=== PATIENT | female | born 1995 | race Caucasian/White ===

== ENCOUNTER 2018-07-23 22:52 | Inpatient (IN) | payer MEDICAID, OTHER ==
[2018-07-24] MEDS ORDERED: LIDOCAINE 1% (MPF) 30 ML INJ INJ
[2018-07-24] MEDS ORDERED: MINERAL OIL LIGHT 10 ML VIAL TOP
[2018-07-24] MEDS ORDERED: METHYLERGONOVINE 0.2 MG INJ IM
[2018-07-24] MEDS: LACTATED RINGER'S 1,000 ML IV ×5 (00:57→23:46)
[2018-07-24] MEDS: AMPICILLIN 2 GM/NS (PMX) 100 ML IV (00:57)
[2018-07-24 01:12] LABS: AMPHETAMINE/METHAMPHETAMINE Negative (NEGATIVE); BARBITURATES Negative (NEGATIVE); BENZODIAZEPINES Negative (NEGATIVE); CANNABINOIDS Negative (NEGATIVE); COCAINE Negative (NEGATIVE); OPIATES Negative (NEGATIVE)
[2018-07-24 01:21] LABS: ADD MAN DIFF? NO
[2018-07-24 01:21] LABS: RUPTURE FETAL MEMBRANES NEGATIVE (NEGATIVE)
[2018-07-24 01:25] LABS: BASOPHILS % 0.5 % (0.0-2.0); EOSINOPHILS # 0.1 10^3/ul (0.0-0.5); HEMATOCRIT 34.3 % (37.0-47.0); HEMOGLOBIN 11.2 g/dl (12.0-16.0); LYMPHOCYTES # 1.9 10^3/ul (0.8-2.9); MEAN CORPUSCULAR HEMOGLOBIN 27.9 pg (29.0-33.0); MEAN CORPUSCULAR HGB CONC 32.7 g/dl (32.0-37.0); MEAN CORPUSCULAR VOLUME 85.5 fl (82.0-101.0); MEAN PLATELET VOLUME 10.8 fl (7.4-10.4); MONOCYTE # 0.7 10^3/ul (0.3-0.9); MONOCYTES % 9.5 % (0.0-11.0); NEUTROPHIL # 4.5 10^3/ul (1.6-7.5); NEUTROPHILS % 61.5 % (39.0-77.0); PLATELET COUNT 215 10^3/UL (140-415); RED BLOOD COUNT 4.01 10^6/ul (4.20-5.40); RED CELL DISTRIBUTION WIDTH 13.6 % (11.5-14.5)
[2018-07-24 01:25] LABS: WHITE BLOOD COUNT 7.3 10^3/ul (4.8-10.8)
[2018-07-24 01:44] LABS: INR 0.85; PARTIAL THROMBOPLASTIN TIME 26.8 Sec (23.0-35.0); PROTIME 11.7 Sec (11.9-14.9); PT RATIO 0.9
[2018-07-24] MEDS: OXYTOCIN 30 UNITS/LR 500 ML IV ×2 (01:56→22:24)
[2018-07-24 03:04] LABS: HEPATITIS B SURFACE ANTIGEN NEGATIVE (NEGATIVE)
[2018-07-24] MEDS ORDERED: ONDANSETRON 4 MG INJ IV ×2 (04:00→23:30)
[2018-07-24] MEDS ORDERED: DIPHENHYDRAMINE 50 MG INJ IV ×2 (04:00→23:30)
[2018-07-24] MEDS ORDERED: NALOXONE (0.4 MG/ML) INJ IV (04:00)
[2018-07-24] MEDS: AMPICILLIN 1 GM/NS (PMX) 50 ML IV ×5 (04:01→19:23)
[2018-07-24] MEDS ORDERED: FENTAnyl 2MCG/ML-ROPIV 0.2% 100 ML (04:03)
[2018-07-24] MEDS: FENTAnyl 2MCG/ML-ROPIV 0.2% 100 ML BAG EPI ×2 (12:21→18:42)
[2018-07-24] MEDS: LACTATED RINGER'S 1,000 ML IV* (23:01)
[2018-07-24] MEDS ORDERED: NA PHOSPHATE/BIPHOS 133 ML ENEMA PR (23:30)
[2018-07-24] MEDS ORDERED: ONDANSETRON 4 MG TAB PO (23:30)
[2018-07-24] MEDS ORDERED: OXYTOCIN 30 UNITS/LR 500 ML IV ×3 (23:30)
[2018-07-24] MEDS ORDERED: HYDROCODONE/APAP (5/325) TAB PO (23:30)
[2018-07-24] MEDS ORDERED: MAGNESIUM HYDROXIDE 30ML CUP PO (23:30)
[2018-07-24] MEDS ORDERED: MISOPROSTOL 200 MCG TAB PR ×2 (23:30)
[2018-07-24] MEDS ORDERED: CARBOPROST 250 MCG INJ IM ×2 (23:30)
[2018-07-24] MEDS ORDERED: SENNA/DOCUSATE NA (8.6MG/50MG) TAB PO (23:30)
[2018-07-24] MEDS ORDERED: DIPHENHYDRAMINE 25 MG CAP PO (23:30)
[2018-07-24] MEDS ORDERED: DIBUCAINE 1% 30 GM OINT TOP (23:30)
[2018-07-24] MEDS: BUTORPHANOL 2 MG INJ IV (23:41)
[2018-07-25] MEDS: OXYTOCIN 30 UNITS/LR 500 ML IV (03:21)
[2018-07-25] MEDS: HYDROCODONE/APAP (5/325) TAB PO ×4 (03:36→22:24)
[2018-07-25] MEDS: WITCH HAZEL/GLYCERIN PAD PR (05:44)
[2018-07-25] MEDS: BENZOCAINE 20% 56 ML SPRAY TOP (05:45)
[2018-07-25] MEDS: IBUPROFEN 600 MG TAB PO ×4 (05:56→17:38)
[2018-07-25] MEDS: LACTATED RINGER'S 1,000 ML IV* (07:21)
[2018-07-25 07:41] LABS: ADD MAN DIFF? NO
[2018-07-25] MEDS: LACTATED RINGER'S 1,000 ML IV (07:46)
[2018-07-25 07:51] LABS: BASOPHILS % 0.1 % (0.0-2.0); EOSINOPHILS % 0.1 % (0.0-7.0); HEMATOCRIT 29.4 % (37.0-47.0); HEMOGLOBIN 9.8 g/dl (12.0-16.0); LYMPHOCYTES # 1.4 10^3/ul (0.8-2.9); LYMPHOCYTES % 8.9 % (15.0-51.0); MEAN CORPUSCULAR HEMOGLOBIN 28.1 pg (29.0-33.0); MEAN CORPUSCULAR HGB CONC 33.3 g/dl (32.0-37.0); MEAN CORPUSCULAR VOLUME 84.2 fl (82.0-101.0); MEAN PLATELET VOLUME 10.9 fl (7.4-10.4); MONOCYTE # 1.1 10^3/ul (0.3-0.9); NEUTROPHIL # 13.3 10^3/ul (1.6-7.5); NEUTROPHILS % 83.3 % (39.0-77.0); PLATELET COUNT 170 10^3/UL (140-415); RED BLOOD COUNT 3.49 10^6/ul (4.20-5.40); RED CELL DISTRIBUTION WIDTH 13.5 % (11.5-14.5)
[2018-07-25] MEDS: SENNA/DOCUSATE NA (8.6MG/50MG) TAB PO ×2 (08:53→20:43)
[2018-07-25] MEDS: LANOLIN HPA 1 PKT TOP ×3 (11:23→22:24)
[2018-07-26] MEDS: IBUPROFEN 600 MG TAB PO ×3 (00:11→13:10)
[2018-07-26] MEDS: DIPHTH/TET/ACEL PERTUSS (ADULT) 0.5 ML VIAL IM* (09:00)
[2018-07-26] MEDS: MEASLES,MUMPS,RUBELLA VACCINE INJ SC* (09:00)
[2018-07-26] MEDS: VARICELLA VACCINE LIVE/PF 1,350 UNIT/0.5 ML ML SC* (09:00)
[2018-07-26] MEDS: SENNA/DOCUSATE NA (8.6MG/50MG) TAB PO (09:18)
[2018-07-26] MEDS: HYDROCODONE/APAP (5/325) TAB PO (09:18)
[2018-07-26 09:26] LABS: ADD UMIC YES; UR AMORPHOUS CRYSTAL MANY /HPF (NONE SEEN); UR ASCORBIC ACID NEGATIVE (NEGATIVE); UR BILIRUBIN (Dip) NEGATIVE (NEGATIVE); UR BLOOD (Dip) 2+ mg/dL (NEGATIVE); UR CLARITY TURBID (CLEAR); UR COLOR YELLOW (YELLOW); UR GLUCOSE (Dip) NEGATIVE (NEGATIVE); UR KETONES (Dip) NEGATIVE (NEGATIVE); UR LEUKOCYTE ESTERASE (Dip) TRACE Leu/ul (NEGATIVE); UR MUCUS MODERATE /HPF (NONE SEEN); UR NITRITE (Dip) NEGATIVE (NEGATIVE); UR NONSQUAMOUS EPITHELIAL CELL 1 /HPF (NONE SEEN); UR RBC 0 /HPF (0-5); UR SPECIFIC GRAVITY (Dip) 1.024 (1.003-1.030); UR SQUAMOUS EPITHELIAL CELL FEW /HPF (FEW); UR TOTAL PROTEIN (Dip) NEGATIVE (NEGATIVE); UR UROBILINOGEN (Dip) NEGATIVE (NEGATIVE); UR WBC 95 /HPF (0-5)
== END 2018-07-26 17:00 | disposition home or self-care (01) | DRG 806 ==
LOC: OBT 22:52 → PP1 07-25 00:26 → L-D 22:59 → OBT 23:40 → L-D 23:40
PROC: 10E0XZZ Delivery of Products of Conception, External Approach (ICD-10-PCS; principal; 2018-07-24)
PROC: 0KQM0ZZ Repair Perineum Muscle, Open Approach (ICD-10-PCS; 2018-07-24)
PROC: 0UQGXZZ Repair Vagina, External Approach (ICD-10-PCS; 2018-07-24)
DX: O48.0 Post-term pregnancy (principal); O71.4 Obstetric high vaginal laceration alone; Z37.0 Single live birth; Z3A.40 40 weeks gestation of pregnancy
CPT/HCPCS: 62322; 76815; 80307; 81001; 84112; 85025; 85610; 85730; 86850; 86870; 86885; 86900; 86901; 87340; 90716; 99464